=== PATIENT | male | born 1965 | race Caucasian/White ===

== ENCOUNTER 2016-09-19 20:13 | Inpatient (IN) | payer OTHER ==
[~2016-09-19] VITALS: Ht 172.7 cm; Wt 105.6 kg
[2016-09-19 23:12] VITALS: BP 163/92; PULSE 77; RESP 20; O2SAT 95
[2016-09-19] MEDS ORDERED: ASPI81TA3 PO (23:43)
[2016-09-19] MEDS ORDERED: INSU100V7 SUBQ (23:43)
[2016-09-19] MEDS ORDERED: PANT20TA2 PO (23:43)
[2016-09-20] VITALS (7 sets, daily range): BP systolic 123–146; BP diastolic 74–86; PULSE 65–91; RESP 18–20; O2SAT 93–98
[2016-09-20] MEDS ORDERED: Polyethylene Glycol (PEG) 17 Gm Powder PO PRN (00:50)
[2016-09-20] MEDS ORDERED: Ondansetron 2 mg/mL 2 mL Inj IVPUSH PRN (00:50)
[2016-09-20] MEDS ORDERED: Senna-Docusate 8.6-50 mg Tablet PO PRN (00:50)
[2016-09-20] MEDS ORDERED: Alum-Mag Hydrox-Simeth 30 mL Suspension PO PRN (00:50)
[2016-09-20] MEDS ORDERED: Glucose 40% Oral Gel 15 Gm Tube PO PRN (00:55)
[2016-09-20] MEDS: 0.9% Sodium Chloride 1,000 ML IV SCH ×2 (01:58→15:05)
--- NOTE | 2016-09-20 02:04 | PCM.HPMED ---
Subjective Date of Service Sep 20, 2016 Primary Provider: Admitting Physician: Mat Cooley MD Primary Care Physician: Ronaldo Prince Attending Physician: Mat Cooley MD Chief Complaint: Chest pain History of Present Illness: Patient is a 51 year old male with a history of type 2 diabetes mellitus and GERD. He presented to [place] ED on 09/19/16 with chest pain. He reports having had episodes of chest pain over the last 1 1/2 to 2 weeks. These episodes having been coming on with varying levels of exertion, but never at rest. 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 He helped his gnosticist move some furniture over the weekend and the lifting caused chest pain. These episodes also caused shortness of breath. They disappeared with rest. Today, he came back from the barn around 1400 and the chest pain was not relieved with rest. It also began to spread into his left arm, neck and jaw. The left arm discomfort became numbness and a sensation of cold in his left hand. He asked to be taken to the ED around 1500. By the time he was placed in an ED room his pain had disappeared (approx 1530). At the time of this H&P he continues to be asymptomatic. In the ED the patient was afebrile with a heart rate of 101, respiratory rate of 15, blood pressure of 198/108 and O2 saturation of 100% on 2L via nasal cannula. Labs were remarkable for glucose 316, creatinine 1.4AST 50, ALT 97, CPK 445, CK-MB 14. Troponin I was 0.36 initially and increased to 0.66 on second measurement. Cardiology was consulted and recommended initiation of a heparin drip and transfer to [facility] for additional workup. Review of Systems: A comprehensive review of systems was conducted with the patient and found to be negative except as above in the history of present illness. Allergies Coded Allergies: pioglitazone (Verified Allergy, Severe, 09/20/16) Gkshrhx-Nir-Oew Reductase Inhibitor (Verified Allergy, Intermediate, myalgias, 09/20/16) Has tried Crestor, simvastatin, pravastatin with the same side effect lisinopril (Verified Allergy, Intermediate, cough, 09/20/16) Patient reports cough so bad that it induced vomiting. Home Medications Per patient: Aspirin 81 mg daily Pantoprazole as needed for acid reflux Lantus 50 units SQ BID Novolog correction scale based on 1 hour post-prandial blood glucose PMH Type 2 diabetes mellitus with peripheral neuropathy, insulin dependent GERD Erectile dysfunction Denies hypertension but does report "White Coat syndrome" . Surgical History Deviated septum repair (age 23) Left wrist I&D secondary to centipede bite Family History Father - [place] age 40 (heavy drinker, smoker, obese); of cancer age 62 Mother - Type 2 DM, stroke Social History Hx Alcohol Use: Yes (occasionally per pt ) Alcoholic Drinks Per Day: 2-3 per week Hx Substance Use: No Hx Tobacco Use: Yes (Quit 12 years ago after 17 years of use) Smoking Status: Former Smoker Living Arrangement: with Family Exam Vital Signs Vital Sign - Last Date Time Temp Pulse Resp B/P Pulse Ox O2 Delivery O2 Flow Rate FiO2 09/19/16 23:12 37.1 77 20 163/92 95 Room Air Exam Alert and oriented x3, no acute distress Head atraumatic, normocephalic PERRLA, EOMI, sclera anicteric Mucus membranes moist, no oral thrush observed No cervical lymphadenopathy, neck supple, nontender No JVD noted Cardiac tones regular rate and rhythm with no murmur appreciated Lungs clear to auscultation bilaterally with adequate respiratory effort No abdominal tenderness, non-distended, normoactive bowel tones, soft Feng absent Radial pulses normal and equivalent bilaterally, dorsalis pedis pulses normal and equivalent bilaterally No cyanosis, clubbing or edema No ulcerations/open wounds Cranial nerves appear to be fully intact, normal speech, patient can move upper and lower limbs grossly Lab and Diagnostics Labs Labs done at [place] 16:21 09/19/16 WBC 9.1. Hgb 16.4 Hct 48.6 Plt 172 Sodium 137 Potassium 3.9 Chloride 101 CO2 26 BUN 18 Creatinine 1.4 Glucose 316 AST 50 ALT 97 Alk phos 77 CPK 445 (reference range 24-260) CK-MD 14 (reference range 0.5-3.2) Troponin I 0.36 (reference range 0-1.5) Repeat troponin I 0.66 X-Rays, CTs and MRIs Chest x-ray ([place]): No acute disease. ED physician interpreted 12-lead ECG EKG reported to show no acute ischemic changes; no copy found for personal review Assessment & Plan Patient is a 51 year old male with a history of type 2 diabetes mellitus and GERD. He presented to [place] ED on 09/19/16 with chest pain. Cardiology consulted from ED and recommended transfer. Admitted to [facility] from further workup and management of his chest pain. 1) Typical angina, acute, present on admission. - Chest pain aggravated by activity, relieved with rest. More likely to be cardiac in origin. - Continue to trend troponin. - Re-check CK-MB panel. - Lipid panel, TSH ordered and pending. - Cardiac heparin drip protocol initiated at [place] and continued now. - Echocardiogram ordered and pending. - Exercise stress test ordered with Lexiscan back-up. - NPO for possibility of cardiac catheterization tomorrow. - Consider re-consulting cardiology in AM for their expertise. - Continue aspirin 81 mg daily. - Nitro SL and morphine available PRN chest pain. - Repeat EKG tomorrow AM. 2) Acute kidney injury, present on admission. - BUN/Cr ratio suggests possible intrinsic renal pathology. Patient with uncontrolled DM could be causing kidney damage. - IV NS 80 ml/hr. - Continue to monitor BMP. - Will order UA for protein level. - Try to avoid nephrotoxic medications. 3) Elevated transaminases, acute, present on admission. - Uncertain etiology at this time. Patient denies significant alcohol intake and is currently not reporting any hepatotoxic medications. No history of IVDA or other high risk behavior indicative of possible hepatitis infection. Could possibly represent fatty liver disease secondary to uncontrolled DM2. - Continue to monitor CMP. - Could consider hepatitis panel - not discussed with patient. 4) Type 2 diabetes mellitus, uncontrolled, chronic. - Last A1c 2-3 months ago. Reportedly 8.5 or 9.0. - Will repeat A1c now. - High dose correction scale available PRN. - As patient is NPO with hold home dose Lantus (50 units BID) at this time. - Antiemetic available PRN. - Bowel regimen available PRN. - Tylenol available PRN mild pain, fever. - Antacid available PRN. Patient admitted under observation status with expected length of stay less than 2 midnights for severity of present symptoms, complexities of treatment plan and risk for adverse events. PCP BELINDA Monsivais - [facility], [facility] Prophylaxis: Other (Cardiac heparin drip protocol) Resuscitation Status: CPR: Attempt Resuscitation Attending Statement The patient was seen and examined together with Dr. Petty on 09/20 and I agree with the history, exam and plan as outlined in the note above. copies to: [facility] Jennifer E DO Sep 20, 2016 01:24 Will Dangelo MD Sep 20, 2016 02:56
[2016-09-20 02:09] LABS: TROPONIN T 0.063 ug/L (0.0-0.011)
[2016-09-20] MEDS: Heparin 25K Unit/500mL 0.45 NS 25,000 UNIT in IV Premix 1 EACH IV SCH ×4 (02:18→20:47)
--- NOTE | 2016-09-20 05:24 | NUR ---
Admission/Heparin Admitted pt from [facility] with diagnosis of chest pain, which has been resolved, per pt with NTG. Pt is currently on heparin drip, which is ordered for elevated trops. Heparin drip running on 1000U/hr for PTT heparin of 23. Hourly rounding done, and call light within reach.
[2016-09-20 07:20] LABS: BASOPHILS % (AUTO) 0.3 % (0-3); EOSINOPHILS % (AUTO) 3.9 % (0-5); MONOCYTES % (AUTO) 10.3 % (4-12); Mean Corpuscular Hemoglobin 28.8 pg (27.0-35.0); Mean Corpuscular Volume 84.8 fL (81-100); NEUTROPHILS % (AUTO) 51.6 % (40-74); Platelet Count 154 bil/L (150-400)
[2016-09-20] MEDS: Insulin LISPRO 300 Unit/3 mL Inj SUBQ SCH ×4 (08:00→20:55)
[2016-09-20] MEDS ORDERED: Influenza (Adult) Vaccine 0.5 mL Syringe IM ONE (08:30)
[2016-09-20] MEDS: Sodium Chloride LOK Flush 10 mL Syringe IVFLUSH SCH ×2 (08:30→16:30)
[2016-09-20] MEDS: Heparin 5,000 Unit/mL Inj IVPUSH PRN ×3 (08:38→19:50)
[2016-09-20] MEDS: Pantoprazole 20 mg ER24 Tablet PO SCH (12:21)
--- NOTE | 2016-09-20 13:27 | NUR ---
Social Work-screening: data:EMR reviewed. Pt is a 51 y/o male who was admitted on 09/19/16 for chest pain per H&P. Pt's insurance is [employer] and PCP is [facility]. EMR Reviewed. Pt resides at home with his where he remains independent with ADLs. Pt to have stress test today. Per RN notes, pt has been up independent in his room. No anticipated discharge needs. SW will continue to follow if needs arise. Assessment:pt who is independent at baseline. Plan:Pt to discharge home when medically stable via POV. No anticipated discharge needs. SW will continue to follow if needs arise. YANETH Ramos
--- NOTE | 2016-09-20 13:38 | CONS ---
[address] [address] CONSULTATION REPORT PATIENT: STAN NARVAEZ : 1965 MR#: [id number] ADMIT: 09/19/2016 JOB ID: [id number] DATE OF SERVICE: 09/20/2016 CARDIOLOGY CONSULTATION: CHIEF COMPLAINT: I was asked by the hospitalist team to consult this patient given chest pain. HISTORY OF PRESENT ILLNESS: The patient is a 51-year-old man with history of type 2 diabetes mellitus. He has been having ongoing chest discomfort for somewhere between 2-3 weeks. This has been occurring primarily with exertion and has resolved with rest. Yesterday while walking back and forth to the barn, he developed chest discomfort that was associated with shortness of breath, radiated to his left arm and did not resolve quickly. Because of this he went to the ED. In the ED he was given some nitroglycerin which did relieve the pain completely. However, troponins were elevated. His EKG is not normal and he was transferred here for further evaluation. Currently he is chest-pain free. Prior to the last 2-3 weeks, he has not have problems with chest pain, shortness of breath, orthopnea, PND, lower extremity edema, palpitations or presyncope. PAST MEDICAL HISTORY/PROBLEM LIST: 1. Diabetes mellitus. 2. GERD. 3. History of possible hyperlipidemia. CURRENT MEDICATIONS: Outpatient medications included: 1. Aspirin 81 mg a day. 2. Pantoprazole. 3. Lantus insulin 50 units subcu b.i.d. 4. NovoLog correction scale. ALLERGIES: He has multiple allergies/intolerances with PIOGLITAZONE. He has tried several statins including Crestor, simvastatin, pravastatin. He said he has had problems with it and ended up in the ED. He also ended up with a significant allergy per his description with LISINOPRIL. He says he is very sensitive to different medications. Cannot predict if he will be allergic to one or the other. SOCIAL HISTORY: He is a former smoker. No significant alcohol. FAMILY HISTORY: Positive for father having heart problems in his 40s. Father eventually of cancer. However, mother had a history of strokes and diabetes mellitus. REVIEW OF SYSTEMS: Overall health: No fevers, chills, night sweats, or weight loss. GI: He has no problems with ulcers, blood in his stool. No bleeding hemorrhoids. : No dysuria, no hematuria. Pulmonary: No chronic lung problems. No history of dyspnea on exertion. Neuro: No history of chronic headaches. Endocrine: He has diabetes mellitus. He admits to having not the most perfect control of his blood sugars. He denies any secondary problems secondary to diabetes. Ophtho: He has no history of retinal problems related to diabetes mellitus. Some vision changes when his sugars are off. Musculoskeletal: He reports some upper leg pain with walking. No calf pain or cramping. Derm: No skin rashes or skin breakdown. Psych: No acute issues. ENT: No sore throat, difficulty swallowing. Heme: No easy bruising or bleeding. All other review of systems on a 12 point review of system are negative. PHYSICAL EXAMINATION: Blood pressure is 123/77, heart rate 68. He is afebrile. Sats are 98% on room air. General: In no acute distress. Speaking in full sentences without apparent shortness of breath. Head and neck examination: Normocephalic, atraumatic. Neck: No obvious JV distention. Heart examination: Regular rate and rhythm. I do not appreciate murmurs, gallops, rubs appreciated. Lungs sound clear to auscultation anteriorly. Back: No CVA tenderness to palpation. Abdomen: Soft, nondistended, nontender. Extremities: Warm. No edema. I can palpate PT and DP pulses somewhat stronger on the left than on the right. Skin: No breakdown or rashes appreciated. Neurologic: Alert and oriented x3. Gait is not tested. Psych: Appropriate mood affect. ENT: Mucous members are moist. No erythema. Ophtho: Vision is grossly intact. EKG shows sinus rhythm with some T-wave changes in the lateral leads. LABORATORIES: Show white count 7.4, H and H 14.8 and 43.5, platelets 154,000. Sodium 141, potassium 4.2, chloride and bicarbonate 104 and 24 respectively. BUN and creatinine 16 and 1.05. Troponins in the range of 0.063-0.069. CPK was mildly elevated, but the CK MB fraction was not elevated. TSH is 2.78. I do not have imaging on him at this time. IMPRESSION: The patient has symptoms of classic progressive anginal symptoms. He has a mildly elevated troponin. He has some T-wave changes on his EKG. He tells me he has had multiple intolerances to medications including all statins. His blood sugars have been reasonably controlled but not always optimally controlled per his report. I suspect he has coronary disease. I discussed cardiac catheterization. I discussed the risks and benefits. I discussed the fact that the different types of stents if stents were placed would be bare metal stents versus drug-eluting stents and also discussed that he would have to be on variable lengths of treatment with Plavix. He is not certain if he would be allergic to Plavix because he had so many problems with other medications. In light of that I think we will give him some test doses of Plavix today to make sure that he tolerates it fine, get an echocardiogram to evaluate LV systolic function, look for focal wall motion abnormalities and plan on cardiac catheterization tomorrow. I would continue with current medications including a heparin drip and will keep him n.p.o. after midnight. 70 minutes was spent reviewing the patient's chart, speaking with him to obtain the history, examination and discussion. TRICIA
--- NOTE | 2016-09-20 14:48 | DRSVH ---
[facility] [address] [place] [address] Echocardiogram Report Name: STAN NARVAEZ Everardo e: 09/20/2016 Height : 68 in Hospital Exam Location: [facility] Weight : 234 lb Gender: Male BSA: 2 .2 m2 : 1965 Age: 51 yrs BP: 12 3/77 mmHg Reason For Study: Chest pain Performed By: Melissa Carlton Referring Physician: LISSETH CAR Interpretation Summary 1. Normal left ventricular size with mild hypertrophy and an estimated EF of 50-55%. Wall motion abnormalities are as noted. 2. Normal right ventricular size and systolic function. 3. Mildly calcified aortic valve with findings consistent with sclerosis. Mild insufficiency. There is no old study for comparison Procedure: A two-dimensional transthoracic echocardiogram with color flow and Doppler was performed. The study quality was technically adequate. There is no prior echocardiogram noted for this patient. A contrast injection of Definity was performed to improve assessment of LV function. The patient was in normal sinus rhythm during the exam. Left Ventricle: The left ventricle is normal in size. There is mild concentric left ventricular hypertrophy. The ejection fraction is estimated to be 50-55%. Hypokinesis of the basal inferior and inferolateral wall. Spectral Doppler of the mitral inflow yields an E/A ratio that is between 0.8 and 1.5. The E/E' ratio is abnormal. Right Ventricle: The right ventricle is normal size. The right ventricular systolic function is normal. Atria: The left atrium is mildly dilated. Right atrial size is normal. The interatrial septum is intact with no evidence for an atrial septal defect. There is no Doppler evidence for an interatrial shunt. Mitral Valve: The mitral valve leaflets appear mildly thickened, but open well. There is mild mitral regurgitation. Aortic Valve: The aortic valve is trileaflet. The aortic valve is mildly calcified. The peak aortic velocity is 2.24 m/sec. The calculated aortic valve area is 2.2 cm2. The aortic valve mean gradient is 6.7 mmHg. There is no hemodynamically significant valvular aortic stenosis. There is mild aortic regurgitation. Tricuspid Valve: The tricuspid valve leaflets are thin and pliable. There is trace tricuspid regurgitation. Right ventricular systolic pressure is estimated to be 34 mmHg plus the clinically estimated CVP which cannot be estimated on this exam. Pulmonic Valve: The pulmonic valve is not well seen, but is grossly normal. There is trace pulmonic regurgitation. Great Vessels: The aortic root is normal size. The ascending aorta is normal in size. The aortic arch could not be visualized. The pulmonary artery is normal size. The inferior vena cava was not visualized. Pericardium/ Pleura There is no pericardial effusion. There is no pleural effusion. MMode/2D Measurements & Calculations LVIDd: 4.9 cm LA dimension: 4.6 cm RA long axis LVOT diam LVIDs: 4.2 cm FS: 14.9 % LA A2 area: 27.5 cm RA area AoV Opening EPSS: 0.73 cm LA A4 area: 22.0 cm IVSd: 1.2 cm LA length (vol): 6.3 cm: 16.3 cm Ao root diam LVPWd: 1.3 cm LA vol: 81.5 ml RA vol LA vol index : 46.7 ml asc Aorta RA Diam: 2.6 cm : 37.3 ml/m2 : 21.4 mm2 LV hernandez. diameter/BSA LV sys. diameter/BSA RVD1 (basal) TAPSE: 1.7 cm (cm/m^2): 2.3 (cm/m^2): 1.9 Doppler Measurements & Calculations Ao V2 max MV E max ricardo MV E/A: 1.4 TR max ricardo : 224.4 cm/sec : 77.1 cm/sec Med Peak E' Ricardo : 292.4 cm/sec Ao max PG MV A max ricardo TR max PG : 20.1 mmHg : 56.6 cm/sec E/E' med: 17.0 : 34.2 mmHg Ao mean PG MV P1/2t: 43.4 msec Lat Peak E' Ricardo PA V2 max : 77.9 cm/sec LVOT Max Ricardo E/E' lat: 17.9 PA mean PG : 95.4 cm/sec E/e' average: 17.5 POONAM(I,D): 2.2 cm Pulm A Revs Dur PA Accel Time sev ratio : 0.12 sec MV A dur: 0.10 sec MV dec time MV P1/2t max ricardo Ao V2 mean LV V1 max PG : 0.15 sec : 101.3 cm/sec Ao V2 VTI: 30.7 cm LV V1 VTI MVA(P1/2t): 5.1 cm2 : 21.8 cm POONAM(V,D): 1.3 cm2 PA V2 mean POONAM indexed to BSA Pulm A Revs Dur - MV A : 54.5 cm/sec (cm^2/m^2): 1.0 Dur: 0.03 msec Reading Physician:02:47 PM
--- NOTE | 2016-09-20 15:33 | PCM.PNMED ---
Subjective Date of Service Sep 20, 2016 Subjective Ash denies any current chest pain this morning. Exam Vital Signs Vital Sign - Last Date Time Temp Pulse Resp B/P Pulse Ox O2 Delivery O2 Flow Rate FiO2 09/20/16 04:52 36.8 68 18 123/77 98 Room Air Intake and Output 09/19/16 09/19/16 09/20/16 Cumulative From/Thru 15:00 23:00 07:00 09/19/16 23:08 - 09/20/16 06:42 Intake Total 480 ml 480 ml Balance 480 ml 480 ml Intake Oral 0 ml 0 ml IV Total 480 ml 480 ml # Voids 1 1 Exam General: Resting comfortably in bed upon my entering the room this morning. Alert and oriented x3, no acute distress HEENT: atraumatic, normocephalic, PERRLA, sclera anicteric. Moist mucus membranes Cardiac: Regular rate and rhythm without murmur, rub, or gallop. No JVD Lungs: Good inspiratory effort without wheezes, rales, or rhonchi. Abdomen: Normoactive bowel tones. Soft, nontender and nondistended without hepatosplenomegaly appreciated. Extremities: No cyanosis, clubbing or edema bilaterally Skin: Normal turgor. No rashes or ulcerations Neuro: Cranial nerves grossly intact, normal speech, moves all 4 extremities with ease. Lab and Diagnostics troponin 0.069 Result Diagram: 09/20/16 0655 09/20/16 0655 X-Rays, CTs and MRIs Chest x-ray ([place]): No acute disease. ED physician interpreted 12-lead ECG EKG this morning suggestive of an inferior infarct. Assessment & Plan Patient is a 51 year old male with a history of type 2 diabetes mellitus and GERD. He presented to [facility]'s emergency department on 09/19/16 with exertional chest pain associated with dyspnea. he was transferred here to [facility] for further evaluation and treatment. His troponin levels have been elevated. Dr Bernabe (Cardiology) has evaluated the patient. 1) Acute coronary syndrome, present on admission - No current chest pain - Exertional chest pain with associated dyspnea is suggestive of cardiac etiology - Elevated troponin - Lipid panel, TSH ordered - Echocardiogram - Continue with cardiac heparin drip protocol which was initiated at [place] - He is reportedly very sensitive to medication and is worried abut a potential allergic response, thus plavix is being given today to make sure that he is able to tolerate it prior to any potential stent placement. - Monitor for any adverse effects to plavix - NPO after midnight in anticipate for cardiac catheterization tomorrow. - Nitro SL and morphine available PRN chest pain. - Note that he has been intolerant to all statins and reports having tried at least 3 different statins. - Repeat EKG as needed 2) Acute kidney injury, present on admission. - Possible intrinsic renal pathology; potential diabetic nephropathy - NS 80 mL/h IV. - Monitor BMP. - Will order UA for protein level. - Avoid nephrotoxic medications when possible 3) Elevated transaminases, acute, present on admission. - Uncertain etiology at this time and does not have risk factors for viral hepatitis - Continue to monitor CMP and consider further evaluation if this does not resolve or increases at all 4) Type 2 diabetes mellitus, uncontrolled, chronic. - Await Hgb A1c level which was ordered by the admitting physician - High dose correction scale ordered. - Anticipate use of home Lantus dosing post catheterization 5. Hx of GERD, chronic and presumed stable - Continue home pantoprazole dosing - Antiemetic available PRN. - Bowel regimen available PRN. - Tylenol available PRN mild pain, fever. VTE Prophylaxis: Other (Cardiac heparin drip protocol) VTE Mechanical Devices: Anti-Embolic stockings Resuscitation Status: CPR: Attempt Resuscitation Time spent 30 minutes Attending Statement I have seen and evaluated patient in addition to directly supervising care provided by resident. I agree with above documentation. Kena Mcdowell DO Sep 20, 2016 10:18 Markel Benson DO Sep 21, 2016 07:56
--- NOTE | 2016-09-20 18:34 | NUR ---
Cardiac Heparin Drip/Cardiac Cath Patient on Cardiac Heparin Drip at 1250 units/hr (25mls/hr) patient tolerating well. Next Ptt to be drawn at 1830. Patient to be NPO after midnight in preparation for Cardiac Cath in the AM.
[2016-09-21] VITALS (21 sets, daily range): BP systolic 120–144; BP diastolic 74–89; PULSE 61–73; RESP 12–20; O2SAT 91–98
[2016-09-21] MEDS: Sodium Chloride LOK Flush 10 mL Syringe IVFLUSH SCH ×3 (00:08→16:30)
[2016-09-21] MEDS: Heparin 5,000 Unit/mL Inj IVPUSH PRN ×2 (01:48→08:57)
[2016-09-21] MEDS: 0.9% Sodium Chloride 1,000 ML IV SCH ×2 (03:00→14:17)
--- NOTE | 2016-09-21 05:23 | NUR ---
NPO/Hep drip Pt has been put NPO after MN for cardiac cath procedure. Still on heparin drip running on 1350units/hr per protocol. Current PTT heparin level is 41.2 and next draw will be on 0652 am. Pt denies chest pain, sob, n/v or abd discomfort. Has been ambulating around hallways. Will continue to monitor.
[2016-09-21 06:38] LABS: APPEARANCE,URINE CLEAR (CLEAR,HAZY); COLOR,URINE STRAW (YELLOW)
[2016-09-21 06:39] LABS: OCCULT BLOOD,URINE TRACE (NEGATIVE); UROBILINOGEN,URINE NORMAL (NORMAL)
[2016-09-21 06:49] LABS: BASOPHILS % (AUTO) 0.3 % (0-3); EOSINOPHILS % (AUTO) 4.1 % (0-5); MONOCYTES % (AUTO) 12.1 % (4-12); Mean Corpuscular Hemoglobin 29.4 pg (27.0-35.0); Mean Corpuscular Volume 84.7 fL (81-100); NEUTROPHILS % (AUTO) 50.2 % (40-74); Platelet Count 159 bil/L (150-400)
[2016-09-21] MEDS: Pantoprazole 20 mg ER24 Tablet PO SCH (08:30)
--- NOTE | 2016-09-21 08:30 | PCM.PNMED ---
Subjective Date of Service Sep 21, 2016 Subjective Ash states that he had some dyspnea while ambulating in the myrick, he finds this to be concerning as just a few weeks ago he was able to walk 4-5 times further without any dyspnea. Denies any cough, chills, or myalgias. He states that the dyspnea is similar to what he had with his chest pain though he has not had any chest pain over the past 24hours. Exam Vital Signs Vital Sign - Last Date Time Temp Pulse Resp B/P Pulse Ox O2 Delivery O2 Flow Rate FiO2 09/21/16 05:41 36.4 67 18 130/77 96 Room Air Intake and Output 09/20/16 09/20/16 09/21/16 Cumulative From/Thru 15:00 23:00 07:00 09/19/16 23:08 - 09/21/16 06:06 Intake Total 1784 ml 2058 ml 4322 ml Output Total 1100 ml 2500 ml 3600 ml Balance 684 ml -442 ml 722 ml Intake Oral 786 ml 400 ml 1186 ml IV Total 998 ml 1658 ml 3136 ml Output Urine Total 1100 ml 2500 ml 3600 ml # Voids 1 # Bowel Movements 1 1 Exam General: Observed ambulating in the myrick at a leisure pace this morning with his IV pole (heparin gtt running). Alert and oriented x3, no acute distress. HEENT: Atraumatic, normocephalic, PERRLA, sclera anicteric. Moist mucus membranes Cardiac: Regular rate and rhythm without murmur, rub, or gallop. No JVD Lungs: Good inspiratory effort without wheezes, rales, or rhonchi. Abdomen: Normoactive bowel tones. Soft, nontender and nondistended. Extremities: No cyanosis, clubbing or edema bilaterally Skin: Normal turgor. No rashes or ulcerations Neuro: Cranial nerves grossly intact, normal speech, moves all 4 extremities with ease. Normal gait. Lab and Diagnostics Result Diagram: 09/21/1655809/21/16558 Cardiac Echo Impressions Transthoracic echo: Interpretation Summary 1. Normal left ventricular size with mild hypertrophy and an estimated EF of 50-55%. Wall motion abnormalities are as noted. 2. Normal right ventricular size and systolic function. 3. Mildly calcified aortic valve with findings consistent with sclerosis. Mild insufficiency. There is no old study for comparison Procedure: A two-dimensional transthoracic echocardiogram with color flow and Doppler was performed. The study quality was technically adequate. There is no prior echocardiogram noted for this patient. A contrast injection of Definity was performed to improve assessment of LV function. The patient was in normal sinus rhythm during the exam. Left Ventricle: The left ventricle is normal in size. There is mild concentric left ventricular hypertrophy. The ejection fraction is estimated to be 50-55%. Hypokinesis of the basal inferior and inferolateral wall. Spectral Doppler of the mitral inflow yields an E/A ratio that is between 0.8 and 1.5. The E/E' ratio is abnormal. Right Ventricle: The right ventricle is normal size. The right ventricular systolic function is normal. Atria: The left atrium is mildly dilated. Right atrial size is normal. The interatrial septum is intact with no evidence for an atrial septal defect. There is no Doppler evidence for an interatrial shunt. Mitral Valve: The mitral valve leaflets appear mildly thickened, but open well. There is mild mitral regurgitation. Aortic Valve: The aortic valve is trileaflet. The aortic valve is mildly calcified. The peak aortic velocity is 2.24 m/sec. The calculated aortic valve area is 2.2 cm2. The aortic valve mean gradient is 6.7 mmHg. There is no hemodynamically significant valvular aortic stenosis. There is mild aortic regurgitation. Tricuspid Valve: The tricuspid valve leaflets are thin and pliable. There is trace tricuspid regurgitation. Right ventricular systolic pressure is estimated to be 34 mmHg plus the clinically estimated CVP which cannot be estimated on this exam. Pulmonic Valve: The pulmonic valve is not well seen, but is grossly normal. There is trace pulmonic regurgitation. Great Vessels: The aortic root is normal size. The ascending aorta is normal in size. The aortic arch could not be visualized. The pulmonary artery is normal size. The inferior vena cava was not visualized. Pericardium/ Pleura There is no pericardial effusion. There is no pleural effusion. Assessment & Plan Ash is a 51 year old male with a history of type 2 diabetes mellitus and GERD. He presented to [facility]'s emergency department on 09/19/16 with exertional chest pain associated with dyspnea. He was transferred here to [facility] for further evaluation and treatment. His troponin levels have been elevated. Dr Bernabe (Cardiology) has evaluated the patient. 1) Acute coronary syndrome, present on admission - Exertional chest pain with associated dyspnea is suggestive of cardiac etiology - No current chest pain though exertional dyspnea persists - Elevated troponin levels - Echocardiogram showing hypokinesis of the inferolateral wall, see echo report for further details - Continue with cardiac heparin gtt which was initiated at [place] - Clopidogrel started yesterday and he tolerated it well; plan to continue dual antiplatelet therapy - Cardiac catheterization later this morning with Dr Bernabe - Nitro SL and morphine available PRN chest pain. - Repeat EKG as needed 2) Acute kidney injury, present on admission, improved - Possible intrinsic renal pathology; potential diabetic nephropathy - NS 80 mL/h IV, will discontinue post cardiac catheterization, when he is able to have oral intake - No protein present on urine analysis - Avoid nephrotoxic medications when possible - Monitor 3) Elevated transaminases, acute, present on admission. - Uncertain etiology at this time and does not have risk factors for viral hepatitis - Continue to monitor CMP and consider further evaluation if this does not resolve or increases at all 4) Type 2 diabetes mellitus, uncontrolled, chronic. - Hgb A1c of 10.6 - High dose correction scale ordered. - Home Lantus dosing post catheterization 5. Hx of GERD, chronic and presumed stable - Continue home pantoprazole dosing 6. Hyperlipidemia, chronic and uncontrolled - Per patient report, he has been intolerant to all statins and reports having tried at least 3 different statins. - Consider Zetia for management - Antiemetic available PRN. - Bowel regimen available PRN. - Tylenol available PRN mild pain, fever. VTE Prophylaxis: Other (Cardiac heparin gtt) Resuscitation Status: CPR: Attempt Resuscitation Time spent 25 minutes Attending Statement I have seen and evaluated patient at bedside in addition to directly supervising care provided by resident physician. I agree with above documentation. Pt in stable condition, no recurrence of chest pain, cardiac cath is pending for later today. Kena Mcdowell DO Sep 21, 2016 08:30 Markel Benson DO Sep 21, 2016 14:13
[2016-09-21] MEDS: Heparin 25K Unit/500mL 0.45 NS 25,000 UNIT in IV Premix 1 EACH IV SCH ×2 (08:58→21:10)
[2016-09-21] MEDS: Insulin LISPRO 300 Unit/3 mL Inj SUBQ SCH ×4 (09:07→21:12)
--- NOTE | 2016-09-21 11:41 | NUR ---
Social Work-readiness for discharge: Data:EMR Reviewed. Pt is on day 2 of hospitalization for chest pain per H&P. Pt is not medically stable, anticipate tomorrow. Pt scheduled for cardiac cath today. Pt has been up independent in his room. Pt's to provide transport home at discharge. No anticipated discharge needs. SW will continue to follow if needs arise. Assessment:Pt who is independent at baseline. Plan:Pt to discharge home when medically stable via POV. No anticipated discharge needs. SW will continue to follow if needs arise. Padmini Horton MSW
[2016-09-21] MEDS ORDERED: Heparin 1,000 Units/500 mL NS Premix IV ONE (12:57)
[2016-09-21] MEDS ORDERED: 0.9% Sodium Chloride 1,000 ML ONE (12:57)
[2016-09-21] MEDS ORDERED: Heparin 5,000 Units/500 mL NS Premix IV ONE (12:57)
--- NOTE | 2016-09-21 13:30 | NUR ---
Pt to lab specialist
[2016-09-21] MEDS ORDERED: fentaNYL-PF 50 mCg/mL 2 mL Inj ONE ×2 (13:39→13:56)
--- NOTE | 2016-09-21 13:50 | NUR ---
NUTRITION CONSULT: Attempted to see pt today for diabetic education. 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 Will re-attempt education /.
--- NOTE | 2016-09-21 16:05 | CS94 ---
[address] [address] DIAGNOSTIC CARDIAC CATHETERIZATION PATIENT: STAN NARVAEZ : 1965 MR#: [id number] ADMIT: 09/19/2016 JOB ID: [id number] SERVICE DATE: 09/21/2016 PROCEDURES PERFORMED: Left heart catheterization with coronary angiography. INDICATIONS: He is a 51-year-old man with progressive anginal symptoms now progressing to non STEMI. He presents for further assessment by cardiac catheterization. DESCRIPTION OF PROCEDURE: Informed consent was obtained. The patient was brought to the catheterization laboratory. Bilateral groins were prepped and draped in a sterile fashion. The area over the right femoral artery was anesthetized with lidocaine, and using micropuncture kit and modified Seldinger technique, access was obtained and a 5-Kazakh sheath was advanced. Next, a 5-Kazakh JL4 catheter was advanced over a wire and used to cannulate the left coronary artery and angiographic views obtained. This catheter was removed over a wire and a 5-Kazakh JR4 catheter was advanced over a wire and used to cannulate the right coronary artery and angiographic views obtained. This catheter was removed and a 5-Kazakh angled pigtail catheter was advanced to the left ventricle under fluoroscopic guidance. Left ventricular pressure tracings were performed and following pullback, aortic pressure change obtained. The case was ended. Angiography of the right femoral access site was reviewed prior to achieving hemostasis with manual compression and no complications. FINDINGS: Coronaries: Left main: This had some distal tapering to about 20%-30%. Left anterior descending artery: This vessel has some ostial disease estimated in the range of 30%-40%. The left anterior descending artery is fairly diffusely diseased with serial stenoses which lacks 40%-50% each. However, the vessel does taper somewhat distally and before the apical segment, there is evidence of additional stenosis estimated in the range of 50%-60%. There is a diagonal branch which does not appear to have any significant disease. Circumflex artery: This vessel gives rise to a small terminal obtuse marginal branch. It has a very small first obtuse marginal branch. The second obtuse marginal branch which supplies at least an intermediate distribution appears subtotaled. There is evidence for slow filling which is likely related to collateralization. Pkrp-bp-aquss collaterals are also seen filling the right coronary artery bed. Right coronary artery: This vessel appears subtotaled with diffuse disease in its first part of the mid conduit segment, possibly with bridging collaterals. There is slow filling of the vessel which appears diffusely diseased with evidence of competitive collateral flow seen in the right coronary artery views. Left ventricular pressures (post contrast) is a range of 20-25 mm. IMPRESSION: Evidence for severe coronary disease with occluded and collateralized right, occluded and collateralized first obtuse marginal branch and a diffusely diseased left anterior descending artery. Given the findings on the cardiac catheterization, the patient is being recommended for a coronary artery bypass grafting. TRICIA
[2016-09-21] MEDS ORDERED: HYDROcodone-APAP 5-325 mg Tablet PO PRN (16:50)
[2016-09-21] MEDS ORDERED: Ondansetron 2 mg/mL 2 mL Inj IVPUSH PRN (16:50)
[2016-09-21] MEDS ORDERED: Atropine 1 mg/10 mL (Code) Syringe IVPUSH PRN (16:50)
[2016-09-21] MEDS ORDERED: 0.9% Sodium Chloride 250 ML BOLUS IV PRN (16:50)
[2016-09-21] MEDS ORDERED: 0.9% Sodium Chloride 400 ML (4 HRS) IV ONE (16:50)
[2016-09-21] MEDS ORDERED: Sodium Chloride LOK Flush 10 mL Syringe IVFLUSH PRN (16:50)
--- NOTE | 2016-09-21 17:30 | NUR ---
Return from [facility] Patient returned to unit after cardiac cath. Small hematoma to Rt femoral artery. No change according to nurse from computer lab para professional. Site clean intact. Patient denies pain and current shortness of breath.
--- NOTE | 2016-09-21 17:59 | NUR ---
[facility] Patient to [facility] bed 9 from dental lab technician/cardiac catheterization. Small hematoma noted on arrival. Manual pressure held X 20 min by automotive technician. Patient denies pain. at bedside. Hematoma remained stable. No bleeding. Pedal pulses present. Bed rest flat X 2 hours post manual hold then up 30 degrees. Taking sip PO. HNV. NS at 100 cc/hr. Transferred back to room 3017 by bed at 1730. Report to receiving RN.
[2016-09-22 00:30] VITALS: BP 134/81; PULSE 69; RESP 20; O2SAT 97
[2016-09-22] MEDS: Sodium Chloride LOK Flush 10 mL Syringe IVFLUSH SCH ×2 (00:30→07:58)
[2016-09-22] MEDS: 0.9% Sodium Chloride 1,000 ML IV SCH (02:05)
--- NOTE | 2016-09-22 02:57 | NUR ---
Chest Pain/Heparin Drip Pt began complaining of chest discomfort. Described at pressure over his chest. EKG was obtained and MD notified. MD arrived to assess Pt and SL nitro was given after EKG resulted. Pts heparin drip was started per MDs orders. Catheterization site has remained unchanged form beginning and pts chest pain resolved with only one SL nitro tablet.
[2016-09-22 03:10] LABS: BASOPHILS % (AUTO) 0.5 % (0-3); EOSINOPHILS % (AUTO) 3.6 % (0-5); MONOCYTES % (AUTO) 13.4 % (4-12); Mean Corpuscular Volume 83.9 fL (81-100); NEUTROPHILS % (AUTO) 52.4 % (40-74); Platelet Count 151 bil/L (150-400)
[2016-09-22] MEDS: Heparin 5,000 Unit/mL Inj IVPUSH PRN (03:47)
[2016-09-22 05:57] VITALS: BP 111/70; PULSE 69; RESP 18; O2SAT 100
[2016-09-22 07:22] VITALS: PULSE 88
[2016-09-22] MEDS: Insulin LISPRO 300 Unit/3 mL Inj SUBQ SCH (07:57)
[2016-09-22] MEDS: Pantoprazole 20 mg ER24 Tablet PO SCH (07:57)
[2016-09-22 07:58] VITALS: PULSE 66
--- NOTE | 2016-09-22 08:59 | PCM.DC.MED ---
Discharge Summary Date of Service Sep 22, 2016 Dates of Hospitalization Date of Hospital Admission Sep 19, 2016 at 23:01 Date of Discharge: Sep 22, 2016 Providers: Admitting Physician: Mat Cooley MD Primary Care Physician: Ronaldo Prince Attending Physician: Mat Cooley MD Procedures Cardiac Echo Impression Transthoracic echo on 09/20/16: Interpretation Summary 1. Normal left ventricular size with mild hypertrophy and an estimated EF of 50-55%. Wall motion abnormalities are as noted. 2. Normal right ventricular size and systolic function. 3. Mildly calcified aortic valve with findings consistent with sclerosis. Mild insufficiency. There is no old study for comparison Procedure: A two-dimensional transthoracic echocardiogram with color flow and Doppler was performed. The study quality was technically adequate. There is no prior echocardiogram noted for this patient. A contrast injection of Definity was performed to improve assessment of LV function. The patient was in normal sinus rhythm during the exam. Left Ventricle: The left ventricle is normal in size. There is mild concentric left ventricular hypertrophy. The ejection fraction is estimated to be 50-55%. Hypokinesis of the basal inferior and inferolateral wall. Spectral Doppler of the mitral inflow yields an E/A ratio that is between 0.8 and 1.5. The E/E' ratio is abnormal. Right Ventricle: The right ventricle is normal size. The right ventricular systolic function is normal. Atria: The left atrium is mildly dilated. Right atrial size is normal. The interatrial septum is intact with no evidence for an atrial septal defect. There is no Doppler evidence for an interatrial shunt. Mitral Valve: The mitral valve leaflets appear mildly thickened, but open well. There is mild mitral regurgitation. Aortic Valve: The aortic valve is trileaflet. The aortic valve is mildly calcified. The peak aortic velocity is 2.24 m/sec. The calculated aortic valve area is 2.2 cm2. The aortic valve mean gradient is 6.7 mmHg. There is no hemodynamically significant valvular aortic stenosis. There is mild aortic regurgitation. Tricuspid Valve: The tricuspid valve leaflets are thin and pliable. There is trace tricuspid regurgitation. Right ventricular systolic pressure is estimated to be 34 mmHg plus the clinically estimated CVP which cannot be estimated on this exam. Pulmonic Valve: The pulmonic valve is not well seen, but is grossly normal. There is trace pulmonic regurgitation. Great Vessels: The aortic root is normal size. The ascending aorta is normal in size. The aortic arch could not be visualized. The pulmonary artery is normal size. The inferior vena cava was not visualized. Pericardium/ Pleura There is no pericardial effusion. There is no pleural effusion. Brief History Per H&P by Dr Petty: Patient is a 51 year old male with a history of type 2 diabetes mellitus and GERD. He presented to [place] ED on 09/19/16 with chest pain. He reports having had episodes of chest pain over the last 1 1/2 to 2 weeks. These episodes having been coming on with varying levels of exertion, but never at rest. 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 He helped his mandaen move some furniture over the weekend and the lifting caused chest pain. These episodes also caused shortness of breath. They disappeared with rest. Today, he came back from the barn around 1400 and the chest pain was not relieved with rest. It also began to spread into his left arm, neck and jaw. The left arm discomfort became numbness and a sensation of cold in his left hand. He asked to be taken to the ED around 1500. By the time he was placed in an ED room his pain had disappeared (approx 1530). At the time of this H&P he continues to be asymptomatic. In the ED the patient was afebrile with a heart rate of 101, respiratory rate of 15, blood pressure of 198/108 and O2 saturation of 100% on 2L via nasal cannula. Labs were remarkable for glucose 316, creatinine 1.4AST 50, ALT 97, CPK 445, CK-MB 14. Troponin I was 0.36 initially and increased to 0.66 on second measurement. Cardiology was consulted and recommended initiation of a heparin drip and transfer to [facility] for additional workup. Hospital Course Ash is a 51 year old male with a history of type 2 diabetes mellitus and GERD. He presented to [facility]'s emergency department on 09/19/16 with exertional chest pain associated with dyspnea. He was transferred here to [facility] for further evaluation and treatment. His troponin levels have been elevated. Dr Bernabe (Cardiology) has evaluated the patient. The following were addressed prior to transfer to [place]: 1) Acute coronary syndrome, present on admission - Exertional substernal chest pain with radiation to the left shoulder and associated dyspnea suggestive of cardiac etiology - Recurrent chest pain with ambulation of 50ft in the hallway - Elevated troponin levels and abnormal T waves in the inferior and lateral leads - Echocardiogram showing hypokinesis of the inferolateral wall, see echo report for further details - Continued cardiac heparin gtt which was initiated at [place] - Clopidogrel given on 09/20/16 and he tolerated it well; did not restart post catheterization - He was not taken to the mine laborer on 09/20/16 because of concern regard possible allergy or intolerance to clopidogrel, catheterization done after he tolerated 2 doses of clopidogrel 75mg. - Cardiac catheterization done on 09/21/[address] Bernabe showed severe multivessel disease and she recommends a CABG, thus he is being transferred to [place] as we do not have cardiothoracic surgeons here. - Nitro SL and morphine available PRN chest pain, last nitro dosing was the evening of 09/21/16 2) Acute kidney injury, present on admission, improved - Possible intrinsic renal pathology; potential diabetic nephropathy - NS 80 mL/h IV given initially, will discontinue post cardiac catheterization, when he is able to have oral intake - No proteinuria on urine analysis - Avoided nephrotoxic medications when possible - Monitored and improved 3) Elevated transaminases, acute, present on admission. - Uncertain etiology at this time and does not have risk factors for viral hepatitis - Continued to monitor CMP 4) Type 2 diabetes mellitus, uncontrolled, chronic. - Hgb A1c of 10.6 - High dose correction scale provided. - Home Lantus dosing post catheterization 5. Hx of GERD, chronic and presumed stable - Continued home pantoprazole dosing 6. Hyperlipidemia, chronic and uncontrolled - Per patient report, he has been intolerant to all statins and reports having tried at least 3 different statins. - Consider Zetia for management, this was not started here - Antiemetic available PRN. - Bowel regimen available PRN. - Tylenol available PRN mild pain, fever. Exam Vital Signs (Last) Date Time Temp Pulse Resp B/P Pulse Ox O2 Delivery O2 Flow Rate FiO2 09/22/16 07:22 88 09/22/16 05:57 36.6 18 111/70 100 Room Air Exam On the date of transfer: General: Resting comfortably in bed with the head of the bed elevated to 45 degrees and heparin gtt running. Alert and oriented x3, no acute distress. HEENT: Atraumatic, normocephalic, PERRLA, sclera anicteric. Moist mucus membranes Cardiac: Regular rate and rhythm without murmur, rub, or gallop. No JVD Lungs: Good inspiratory effort without wheezes, rales, or rhonchi. Abdomen: Normoactive bowel tones. Soft, nontender and nondistended. Extremities: No cyanosis, clubbing or edema bilaterally Skin: Normal turgor. No rashes or ulcerations Neuro: Cranial nerves grossly intact, normal speech, moves all 4 extremities with ease. Normal gait. Test 09/20/16 01:14 09/20/16 06:55 09/21/16 05:59 09/21/16 06:00 Total Creatine Kinase 262U/L (21-232) Creatine Kinase MB 10.1ng/mL (0.0-10.4) Creatine Kinase MB % 3.9% (0.0-5.0) Thyroid Stimulating Hormone (TSH) 2.780uIU/mL (0.450-4.500) Hemoglobin A1c 10.6% (4.8-5.6) Magnesium Level 1.9mg/dL (1.6-2.6) Troponin T 0.069ug/L (0.0-0.011) Triglycerides Level 384mg/dL (0-149) Cholesterol Level 216mg/dL (100-199) LDL Cholesterol, Calculated 102.200mg/dL (0-99) VLDL Cholesterol 76.800mg/dL HDL Cholesterol 37mg/dL (>39) Cholesterol/HDL Ratio 5.84 (0.0-4.4) Urine Color Straw (YELLOW) Urine Appearance Clear (CLEAR,HAZY) Urine pH 6.0 (5.0-8.0) Urine Specific Jackson 1.016 (1.003-1.035) Urine Protein Negativemg/dL (NEG,TRACE) Urine Glucose (UA) 500mg/dL (NEGATIVE) Urine Ketones Negativemg/dL (NEGATIVE) Urine Occult Blood Trace (NEGATIVE) Urine Nitrite Negative (NEGATIVE) Urine Bilirubin Negative (NEGATIVE) Urine Urobilinogen Normalmg/dL (NORMAL) Urine Leukocyte Esterase Negative (NEGATIVE) Test 09/22/16 02:47 White Blood Count 6.4th/mm3 (3.8-10.1) Red Blood Count 5.21mil/mm3 (4.40-5.80) Hemoglobin 15.1g/dL (13.8-17.2) Hematocrit 43.7% (41.0-50.0) Mean Corpuscular Volume 83.9fL (81-100) Mean Corpuscular Hemoglobin 29.0pg (27.0-35.0) Mean Corpuscular Hemoglobin Concent 34.6% (32.0-37.0) Red Cell Distribution Width 12.7% (12.3-15.4) Platelet Count 151bil/L (150-400) Neutrophils (%) (Auto) 52.4% (40-74) Lymphocytes (%) (Auto) 29.9% (14-46) Monocytes (%) (Auto) 13.4% (4-12) Eosinophils (%) (Auto) 3.6% (0-5) Basophils (%) (Auto) 0.5% (0-3) Activated Partial Thromboplast Time 29.2sec (22.8-33.0) Sodium Level 134mEq/L (134-144) Potassium Level 4.5mEq/L (3.5-5.2) Chloride Level 100mEq/L (97-108) Carbon Dioxide Level 23mmol/L (18-29) Blood Urea Nitrogen 12mg/dL (6-24) Creatinine 1.03mg/dL (0.76-1.27) Estimat Glomerular Filtration Rate 80mL/min (>59) Glucose Level 229mg/dL (60-99) Calcium Level 8.8mg/dL (8.5-10.1) Total Bilirubin 0.6mg/dL (0.0-1.2) Aspartate Amino Transf (AST/SGOT) 37U/L (0-50) Alanine Aminotransferase (ALT/SGPT) 58U/L (0-44) Alkaline Phosphatase 61U/L (25-150) Total Protein 6.1g/dL (6.4-8.4) Albumin 3.5g/dL (3.4-5.0) Discharge Medications Discharge Medications Aspirin Chew (Aspirin Chew) 81 Mg Chew 81 MG PO HS (Reported) Insulin Glargine (Lantus U100 Insulin Vial) 100 Unit/Ml Vial 50 UNIT SUBQ ACHS ( Reported) Pantoprazole DR (Pantoprazole DR) 20 Mg Tablet.dr 20 MG PO MORNING (Reported) Followup Plan Disposition: Transfer via ambulance to [place] for a higher level of care with cardiothoracic surgery Discharge Diet: Heart Healthy Time spent 40 minutes Attending Statement I have seen and evaluated patient at bedside in addition to directly supervising care provided by resident physician. I agree with above documentation. Kena Mcdowell DO Sep 22, 2016 08:59 Markel Benson DO Sep 23, 2016 07:51
[2016-09-22 09:04] VITALS: BP 146/83; PULSE 70; RESP 20; O2SAT 100
--- NOTE | 2016-09-22 10:24 | NUR ---
Transfer Pt transferred to [facility] in [place]. Taken by EMS, left the floor at 0952. Transfer paperwork sent with transporters. Report called to EMMIE Barahona. Pt alert and oriented, aware and understanding of transfer. at bedside. Pt belongings sent with pt. Heparin drip stopped prior to transfer, and 100mg lovenox given per MD order.
--- NOTE | 2016-09-22 10:41 | NUR ---
Social Work: Transfer RACK CLEANER notified by nursing staff that pt has transferred to [place]. Shelli Martini MSW
--- NOTE | 2016-09-22 14:49 | NUR ---
Late entry: Case Management: COS to inpt 09/21 per MD order on that date. Christina Groves RN
== END 2016-09-22 09:59 | disposition short-term general hospital (02) | DRG 287 ==
LOC: MPC 23:01 → OBSVTOIN 23:01
PROVIDERS: ADMIT Internal Medicine; ATTEND Internal Medicine
PROC: 4A023N7 Measurement of Cardiac Sampling and Pressure, Left Heart, Percutaneous Approach (ICD-10-PCS; principal; 2016-09-21)
PROC: B2111ZZ Fluoroscopy of Multiple Coronary Arteries using Low Osmolar Contrast (ICD-10-PCS; 2016-09-21)
PROC: B2151ZZ Fluoroscopy of Left Heart using Low Osmolar Contrast (ICD-10-PCS; 2016-09-21)
DX: I24.9 Acute ischemic heart disease, unspecified (principal); E78.5 Hyperlipidemia, unspecified; E11.65 Type 2 diabetes mellitus with hyperglycemia; E11.42 Type 2 diabetes mellitus with diabetic polyneuropathy; K21.9 Gastro-esophageal reflux disease without esophagitis; Z79.82 Long term (current) use of aspirin; Z79.4 Long term (current) use of insulin; Z87.891 Personal history of nicotine dependence